=== PATIENT | male | born 1990 | race African-American/Black ===

== ENCOUNTER 2016-07-29 11:24 | Emergency (ER) | payer MEDICAID | END 2016-07-29 13:43 | disposition home or self-care (01) | LOC: D.ER 11:24 | DX: S39.012A Strain of muscle, fascia and tendon of lower back, initial encounter (principal); V49.88XA Car occupant (driver) (passenger) injured in other specified transport accidents, initial encounter; Y93.89 Activity, other specified; Y92.410 Unspecified street and highway as the place of occurrence of the external cause; J45.909 Unspecified asthma, uncomplicated; F17.200 Nicotine dependence, unspecified, uncomplicated ==